=== PATIENT | female | born 1985 ===

== ENCOUNTER 2023-08-07 17:05 | Inpatient (IN) | payer SELFPAY ==
[~2023-08-07] VITALS: Ht 170.2 cm; Wt 66.5 kg
[2023-08-07 17:08] VITALS: PULSE 88; PULSE 89; RESP 16; O2SAT 100
[2023-08-07 17:37] LABS: ABG BASE EXCESS -11.6 mmol/L (-2.0-3.0); ABG CARBOXYHEMOGLOBIN 0.1 % (0.0-1.5); ABG HCO3 15.6 mmol/L (22.0-26.0); ABG METHEMOGLOBIN 1.2 % (0.0-1.5); ABG OXYGEN CONTENT 14.2 mL/dL (15.0-23.0); ABG OXYGEN SATURATION 99.7 % (95.0-98.0); ABG OXYHEMOGLOBIN 98.4 % (94.0-100.0); ABG PCO2 49 mmHg (35-45); ABG TOTAL HEMOGLOBIN 9.7 G/dL (12.0-18.0); PO2, ARTERIAL BG 309.9 mmHg (92.0-100.0); SOURCE, BLOOD GAS ARTERIAL; TEMPERATURE, FAHRENHEIT, BG 98.6 FAHREN (96.0-98.6)
[2023-08-07 17:38] LABS: ABG PH 7.164 (7.350-7.450); ALLEN TEST, BLOOD GAS POS; O2 DEVICE,BLOOD GAS VENTILATOR (ROOM AIR); PEEP,BG 5 cm H2O; SITE, BLOOD GAS RT RADIAL; VT, ABG 400 ml
[2023-08-07] MEDS ORDERED: NALOXONE HCL 1 MG/ML 2 ML SYRINGE ONE (17:41)
[2023-08-07] MEDS ORDERED: SODIUM BICARBONATE [ADULT] 8.4% 50 MEQ/50 ML SYRINGE IVP ONE ×2 (17:42)
[2023-08-07] MEDS: SODIUM BICARBONATE [ADULT] 8.4% 50 MEQ/50 ML SYRINGE IVP ONE (17:46)
[2023-08-07] MEDS: NALOXONE HCL 1 MG/ML 2 ML SYRINGE IVP ONE (17:46)
[2023-08-07 17:49] LABS: BASOPHILS % (AUTO) 1.2 % (0.0-2.0); EOSINOPHILS % (AUTO) 1.1 % (1.0-6.0); HEMATOCRIT 32.2 % (36-46); HEMOGLOBIN 9.9 g/dL (12.0-16.0); LYMPHOCYTES # (AUTO) 6.4 K/uL (1.0-4.8); LYMPHOCYTES % (AUTO) 45.6 % (22.0-44.0); MEAN CORPUSCULAR HEMOGLOBIN 21.4 pg (26.0-34.0); MEAN CORPUSCULAR HGB CONC 30.7 G/dL (31.0-37.0); MEAN CORPUSCULAR VOLUME 70 fL (80-100); MONOCYTES # (AUTO) 0.7 K/uL (0.1-1.0); MONOCYTES % (AUTO) 5.3 % (2.0-9.0); NEUTROPHILS # (AUTO) 6.5 K/uL (1.8-7.7); NEUTROPHILS % (AUTO) 46.8 % (40.0-70.0); PLATELET COUNT (AUTO) 591 K/uL (150-450); RED BLOOD CELL COUNT(AUTO) 4.63 MIL/uL (4.00-5.20); RED CELL DISTRIBUTION WIDTH 29.6 % (11.5-14.5)
[2023-08-07] MEDS: SODIUM CHLORIDE 0.9% 1,000 ML IV ONE ×3 (17:52→19:01)
[2023-08-07 17:53] LABS: ANION GAP 12 mmol/L (8-16); CALCIUM, TOTAL 8.5 mg/dL (8.8-10.5); CARBON DIOXIDE 23 mmol/L (22-29); CHLORIDE 98 mmol/L (98-107); CREATININE 1.28 mg/dL (0.60-1.30); GLOMERULAR FILTR. RATE CALC 47 mL/min (>60); GLUCOSE,RANDOM 383 mg/dL (70-110); SODIUM SERUM 133 mmol/L (136-145); UREA NITROGEN, BLOOD 7 mg/dL (7-18)
[2023-08-07] MEDS ORDERED: PHENYLEPHRINE HCL IN 0.9% NACL 400 MCG/10 ML SYRINGE IVP ONE (17:53)
[2023-08-07 17:57] LABS: PROTHROMBIN TIME 10.9 SEC (9.4-11.6)
[2023-08-07] MEDS ORDERED: FentaNYL CIT 1000MCG/0.9% NACL 100 ML IV PRN (18:00)
[2023-08-07 18:01] LABS: AMMONIA 28 umol/L (11-32)
[2023-08-07 18:06] LABS: TROPONIN I-HIGH SENSITIVITY 125 ng/L (<51)
[2023-08-07 18:07] LABS: LACTIC ACID 4.1 mmol/L (0.4-2.0)
[2023-08-07 18:09] LABS: APPEARANCE,URINE CLEAR (CLEAR); BILIRUBIN,URINE NEGATIVE (NEGATIVE); COLOR,URINE COLORLESS (YELLOW); GLUCOSE, URINE (UA) 150-200 mg/dL (NEGATIVE); KETONES,URINE NEGATIVE (NEGATIVE); LEUKOCYTE ESTERASE ,URINE NEGATIVE (NEGATIVE); NITRATE,URINE NEGATIVE (NEGATIVE); OCCULT BLOOD,URINE TRACE (NEGATIVE); PH,URINE 5.5 (5.0-8.0); PH,URINE DRUG SCREEN 5.5 (5.0-8.0); PROTEIN,URINE TRACE mg/dL (NEGATIVE); SPECIFIC GRAVITIY, URINE 1.003 (1.003-1.030); UROBILINOGEN,URINE <=1.0 mg/dL (<=1.0)
[2023-08-07 18:17] LABS: ALCOHOL, URINE DRUG SCREEN NEGATIVE (NEGATIVE); AMPHET/METH SCREEN,URINE NEGATIVE (NEGATIVE); BARBITURATE SCREEN, URINE NEGATIVE (NEGATIVE); BENZODIAZEPINES SCREEN,URINE POSITIVE (NEGATIVE); CANNABINOID SCREEN,URINE NEGATIVE (NEGATIVE); COCAINE SCREEN,URINE NEGATIVE (NEGATIVE); METHADONE SCREEN, URINE NEGATIVE (NEGATIVE); OPIATE SCREEN,URINE NEGATIVE (NEGATIVE); PHENCYCLIDINE SCREEN,URINE NEGATIVE (NEGATIVE)
[2023-08-07] MEDS ORDERED: PROPOFOL 1000 MG/ISO-OSM 100 ML ONE (18:23)
[2023-08-07 18:31] LABS: RBC MORPHOLOGY COMMENT ABNORMAL RBC MORPH
[2023-08-07 18:33] LABS: ALANINE AMINOTRANSFERASE 33 U/L (12-78); ALBUMIN 3.7 g/dL (3.4-5.0); ALKALINE PHOSPHATASE 97 U/L (46-116); ASPARTATE AMINOTRANSFERASE 94 U/L (15-37); BILIRUBIN,TOTAL 0.1 mg/dL (0.1-1.0); TOTAL PROTEIN, SERUM 7.2 g/dL (6.4-8.2)
[2023-08-07 18:34] LABS: ACETAMINOPHEN < 2 mcg/mL (10-30); CREATINE KINASE, TOTAL ONLY 2735 U/L (26-192)
[2023-08-07 18:37] LABS: BACTERIA,URINE None Seen /HPF (None Seen); RBC,URINE None Seen /HPF (0-2); WBC,URINE 0-2 /HPF (0-5)
[2023-08-07] MEDS: NOREPINEPHRINE 8 MG/0.9 % NACL 250 ML IV PRN (18:39)
[2023-08-07] MEDS: PHENYLEPHRINE 200 MG/D5%-WATER 250 ML IV PRN (18:40)
[2023-08-07] MEDS: FentaNYL CIT 1000MCG/0.9% NACL 100 ML IV PRN (18:41)
[2023-08-07] MEDS: MIDAZOLAM HCL 2 MG/2 ML VIAL IVP ONE (19:00)
[2023-08-07] MEDS: PHENYLEPHRINE HCL IN 0.9% NACL 400 MCG/10 ML SYRINGE IVP ONE (19:00)
[2023-08-07] MEDS: PROPOFOL 1000 MG/ISO-OSM 100 ML IV PRN (19:01)
[2023-08-07 19:42] VITALS: PULSE 98; RESP 18; O2SAT 100
[2023-08-07 19:43] VITALS: PULSE 98; RESP 18; O2SAT 100
[2023-08-07 20:17] LABS: COVID AG,FIA SOURCE NASAL SWAB
[2023-08-07 20:48] LABS: SARS-COV2 (COVID) ANTIGEN,FIA Negative (Negative)
[2023-08-07] MEDS ORDERED: BISACODYL 10 MG RECTAL RECTAL SUPPOSITORY PR PRN (21:00)
[2023-08-07] MEDS ORDERED: IPRATROPIUM BROMIDE 0.5 MG/2.5 ML NEB SOLUTION NEB PRN (21:00)
[2023-08-07] MEDS ORDERED: MAGNESIUM HYDROXIDE SUSPENSION 30 ML UDCUP PO PRN (21:00)
[2023-08-07] MEDS ORDERED: ALBUTEROL SULFATE 2.5 MG/0.5 ML NEB SOLUTION NEB PRN (21:00)
[2023-08-07] MEDS ORDERED: ONDANSETRON HCL 4 MG/2 ML VIAL IVP PRN (21:00)
[2023-08-07 21:10] VITALS: BP 100/56; PULSE 96; RESP 16; TEMP 97.9
[2023-08-07 21:20] VITALS: PULSE 98; RESP 16; O2SAT 100
[2023-08-07 21:55] LABS: ALANINE AMINOTRANSFERASE 29 U/L (12-78); ALKALINE PHOSPHATASE 74 U/L (46-116); ANION GAP 6 mmol/L (8-16); ASPARTATE AMINOTRANSFERASE 80 U/L (15-37); BILIRUBIN,TOTAL 0.2 mg/dL (0.1-1.0); CALCIUM, TOTAL 7.6 mg/dL (8.8-10.5); CARBON DIOXIDE 27 mmol/L (22-29); CHLORIDE 107 mmol/L (98-107); CREATININE 0.82 mg/dL (0.60-1.30); GLOMERULAR FILTR. RATE CALC > 60 mL/min (>60); GLUCOSE,RANDOM 112 mg/dL (70-110); POTASSIUM 4.8 mmol/L (3.5-5.1); SODIUM SERUM 140 mmol/L (136-145); TOTAL PROTEIN, SERUM 5.9 g/dL (6.4-8.2); UREA NITROGEN, BLOOD 8 mg/dL (7-18)
[2023-08-07] MEDS: CefTRIAXone 1 GM/DEXTROSE 50 ML IV SCH (21:55)
[2023-08-07] MEDS ORDERED: SODIUM CHLORIDE 0.9% 250 ML IV ONE (21:56)
[2023-08-07] MEDS: DOCUSATE SODIUM 100 MG CAPSULE PO SCH (22:17)
[2023-08-07 22:23] LABS: CREATINE KINASE, TOTAL ONLY 2209 U/L (26-192)
[2023-08-07] MEDS: HEPARIN SODIUM,PORCINE 5,000 UNITS/ML VIAL SQ SCH (23:09)
[2023-08-08] VITALS (12 sets, daily range): BP systolic 89–120; BP diastolic 48–81; PULSE 11–120; RESP 12–22; TEMP 98.8–101.5; O2SAT 99–100
[2023-08-08] MEDS: ACETAMINOPHEN 325 MG TABLET PO PRN (05:56)
[2023-08-08 05:59] LABS: BASOPHILS % (AUTO) 0.7 % (0.0-2.0); EOSINOPHILS % (AUTO) 1.1 % (1.0-6.0); HEMATOCRIT 29.1 % (36-46); HEMOGLOBIN 9.2 g/dL (12.0-16.0); LYMPHOCYTES # (AUTO) 4.5 K/uL (1.0-4.8); LYMPHOCYTES % (AUTO) 29.4 % (22.0-44.0); MEAN CORPUSCULAR HEMOGLOBIN 21.7 pg (26.0-34.0); MEAN CORPUSCULAR HGB CONC 31.5 G/dL (31.0-37.0); MEAN CORPUSCULAR VOLUME 69 fL (80-100); MONOCYTES # (AUTO) 1.4 K/uL (0.1-1.0); MONOCYTES % (AUTO) 8.9 % (2.0-9.0); NEUTROPHILS # (AUTO) 9.1 K/uL (1.8-7.7); NEUTROPHILS % (AUTO) 59.9 % (40.0-70.0); PLATELET COUNT (AUTO) 510 K/uL (150-450); RED BLOOD CELL COUNT(AUTO) 4.22 MIL/uL (4.00-5.20); RED CELL DISTRIBUTION WIDTH 29.3 % (11.5-14.5); WHITE BLOOD COUNT (AUTO) 15.3 K/uL (4.5-11.0)
[2023-08-08 06:14] LABS: ALANINE AMINOTRANSFERASE 26 U/L (12-78); ALBUMIN 3.1 g/dL (3.4-5.0); ALKALINE PHOSPHATASE 74 U/L (46-116); ANION GAP 8 mmol/L (8-16); ASPARTATE AMINOTRANSFERASE 74 U/L (15-37); BILIRUBIN,TOTAL 0.1 mg/dL (0.1-1.0); CALCIUM, TOTAL 7.9 mg/dL (8.8-10.5); CARBON DIOXIDE 26 mmol/L (22-29); CHLORIDE 105 mmol/L (98-107); CREATININE 0.64 mg/dL (0.60-1.30); GLOMERULAR FILTR. RATE CALC > 60 mL/min (>60); GLUCOSE,RANDOM 82 mg/dL (70-110); POTASSIUM 4.1 mmol/L (3.5-5.1); SODIUM SERUM 139 mmol/L (136-145); TOTAL PROTEIN, SERUM 6.2 g/dL (6.4-8.2); UREA NITROGEN, BLOOD 5 mg/dL (7-18)
[2023-08-08 06:25] LABS: GLUCOMETER DEV NAME(LOC) ERT.5; GLUCOSE,POINT OF CARE 153 MG/DL (70-110)
[2023-08-08 06:40] LABS: RBC MORPHOLOGY COMMENT ABNORMAL RBC MORPH
[2023-08-08] MEDS ORDERED: PROPOFOL 1000 MG/ISO-OSM 100 ML ONE (06:56)
[2023-08-08] MEDS: PROPOFOL 1000 MG/ISO-OSM 100 ML IV PRN (07:27)
[2023-08-08] MEDS: PANTOPRAZOLE SODIUM 40 MG/VIAL IVP SCH (10:19)
[2023-08-08] MEDS: FentaNYL CIT 1000MCG/0.9% NACL 100 ML IV PRN (10:19)
[2023-08-08] MEDS: DEXMEDETOMIDINE HCL 400 MCG in SODIUM CHLORIDE 0.9% 96 ML IV PRN (11:08)
[2023-08-08 14:29] LABS: ABG BASE EXCESS -1.7 mmol/L (-2.0-3.0); ABG CARBOXYHEMOGLOBIN 0.1 % (0.0-1.5); ABG HCO3 23.1 mmol/L (22.0-26.0); ABG METHEMOGLOBIN 0.1 % (0.0-1.5); ABG OXYGEN CONTENT 12.5 mL/dL (15.0-23.0); ABG OXYGEN SATURATION 90.5 % (95.0-98.0); ABG OXYHEMOGLOBIN 90.3 % (94.0-100.0); ABG PCO2 41 mmHg (35-45); ABG PH 7.376 (7.350-7.450); ABG TOTAL HEMOGLOBIN 9.8 G/dL (12.0-18.0); PO2, ARTERIAL BG 57.1 mmHg (92.0-100.0); SOURCE, BLOOD GAS ARTERIAL
[2023-08-08 15:02] LABS: ALLEN TEST, BLOOD GAS Positive; SITE, BLOOD GAS RT RADIAL
[2023-08-08 15:03] LABS: ABG A-A DIFF O2 108.4 mmHg (10-20.0); CPAP, BG 0 cm H2O; O2 DEVICE,BLOOD GAS VENTILATOR (ROOM AIR); PRESSURE SUPPORT, BG 8 cm H2O; SPONTANEOUS VT, BG 360 ml; VENT MODE, BG CPAP (ROOM AIR)
[2023-08-08] MEDS: NOREPINEPHRINE 8 MG/0.9 % NACL 250 ML IV PRN (19:29)
[2023-08-08] MEDS: LORazepam 2 MG/ML VIAL IVP PRN (20:00)
[2023-08-09] VITALS: BP 111/65; PULSE 118; PULSE 131; RESP 22; TEMP 100.5
[2023-08-09] MEDS: ZOLPIDEM TARTRATE 5 MG TABLET PO PRN (01:21)
[2023-08-09 04:00] VITALS: BP 119/81; PULSE 127; PULSE 128; RESP 22; TEMP 100
[2023-08-09 05:41] LABS: BASOPHILS % (AUTO) 0.3 % (0.0-2.0); EOSINOPHILS % (AUTO) 0.4 % (1.0-6.0); HEMATOCRIT 26.5 % (36-46); HEMOGLOBIN 8.2 g/dL (12.0-16.0); LYMPHOCYTES # (AUTO) 2.2 K/uL (1.0-4.8); LYMPHOCYTES % (AUTO) 11.1 % (22.0-44.0); MEAN CORPUSCULAR HEMOGLOBIN 21.3 pg (26.0-34.0); MEAN CORPUSCULAR HGB CONC 30.9 G/dL (31.0-37.0); MEAN CORPUSCULAR VOLUME 69 fL (80-100); MONOCYTES % (AUTO) 5.3 % (2.0-9.0); NEUTROPHILS # (AUTO) 16.2 K/uL (1.8-7.7); NEUTROPHILS % (AUTO) 82.9 % (40.0-70.0); PLATELET COUNT (AUTO) 351 K/uL (150-450); RED BLOOD CELL COUNT(AUTO) 3.85 MIL/uL (4.00-5.20); RED CELL DISTRIBUTION WIDTH 29.1 % (11.5-14.5); WHITE BLOOD COUNT (AUTO) 19.5 K/uL (4.5-11.0)
[2023-08-09 05:52] LABS: ANION GAP 10 mmol/L (8-16); CALCIUM, TOTAL 8.3 mg/dL (8.8-10.5); CARBON DIOXIDE 24 mmol/L (22-29); CHLORIDE 103 mmol/L (98-107); GLOMERULAR FILTR. RATE CALC > 60 mL/min (>60); GLUCOSE,RANDOM 91 mg/dL (70-110); POTASSIUM 3.3 mmol/L (3.5-5.1); SODIUM SERUM 137 mmol/L (136-145); UREA NITROGEN, BLOOD 5 mg/dL (7-18)
[2023-08-09 06:21] LABS: RBC MORPHOLOGY COMMENT ABNORMAL RBC MORPH
[2023-08-09 08:00] VITALS: BP 116/70; PULSE 125; RESP 20; TEMP 98.3
== END 2023-08-09 10:35 | disposition left against medical advice (07) | DRG 917 ==
LOC: EMS 17:05 → ICU 19:22
PROVIDERS: ADMIT Hospitalist; ATTEND Hospitalist
PROC: 5A1945Z Respiratory Ventilation, 24-96 Consecutive Hours (ICD-10-PCS; principal; 2023-08-07)
PROC: 0BH17EZ Insertion of Endotracheal Airway into Trachea, Via Natural or Artificial Opening (ICD-10-PCS; 2023-08-07)
DX: T42.4X1A Poisoning by benzodiazepines, accidental (unintentional), initial encounter (principal); G92.8 Other toxic encephalopathy; J96.00 Acute respiratory failure, unspecified whether with hypoxia or hypercapnia; J81.1 Chronic pulmonary edema; M62.82 Rhabdomyolysis; E87.1 Hypo-osmolality and hyponatremia; R65.10 Systemic inflammatory response syndrome (SIRS) of non-infectious origin without acute organ dysfunction; E87.20 Acidosis, unspecified; Z20.822 Contact with and (suspected) exposure to COVID-19; E11.9 Type 2 diabetes mellitus without complications; T40.411A Poisoning by fentanyl or fentanyl analogs, accidental (unintentional), initial encounter; D72.829 Elevated white blood cell count, unspecified; Y92.89 Other specified places as the place of occurrence of the external cause; Z53.29 Procedure and treatment not carried out because of patient's decision for other reasons
CPT/HCPCS: 36600; 51702; 70450; 71045; 80048; 80053; 80307; 81001; 82009; 82140; 82550; 82805; 82962; 83036; 83605; 83880; 84484; 84702; 84703; 85025; 85610; 85730; 87040; 87081; 93005; 93306; 94002; 94003; 99291; C9113; G0480; G0481; J0696; J1644; J2060; J2310; J2370; J2704; J3490; J7050; Q9967; 36415-L1; 36415-TC